=== PATIENT | female | born 1955 | race African-American/Black ===

== ENCOUNTER 2017-11-05 02:58 | Emergency (ER) | payer SELFPAY ==
[~2017-11-05] VITALS: Ht 165.1 cm; Wt 54.5 kg
[2017-11-05 03:36] LABS: BASOPHILS % 1.2 % (0.0-2.0); EOSINOPHILS % 2.9 % (0.0-5.0); HEMATOCRIT. 37.3 % (36.0-48.0); HEMOGLOBIN. 12.7 g/dL (12.0-16.0); LYMPHOCYTES % 57.4 % (20.0-50.0); MEAN CORPUSCULAR HEMOGLOBIN 33.7 pg (28.0-32.0); MEAN CORPUSCULAR VOLUME 98.9 fL (81.0-99.0); MEAN PLATELET VOLUME 9.3 fl (7.4-10.4); MONOCYTES % 10.2 % (2.0-8.0); NEUTROPHILS % 28.3 % (40.0-76.0); PLATELET 164 x1000/uL (130-400); RED BLOOD CELL COUNT 3.78 mill/uL (4.2-5.4)
[2017-11-05 03:42] LABS: CHLORIDE 107 mEq/L (98-107)
[2017-11-05 03:45] LABS: PROTHROMBIN TIME 10.8 sec (9.4-11.6)
[2017-11-05] MEDS ORDERED: ONDANSETRON HCL 4MG/2ML VIAL IV ONE (04:15)
[2017-11-05] MEDS ORDERED: MECLIZINE 25MG TABLET PO SCH (04:59)
[2017-11-05] MEDS ORDERED: SODIUM CHLORIDE 0.9% 1,000 ML IV ONE (08:15)
[2017-11-05 09:45] VITALS: BP 121/70
== END 2017-11-05 10:05 | disposition home or self-care (01) ==
LOC: ER 03:07 → CANBEDREQ 12:44
DX: E86.0 Dehydration (principal); R42 Dizziness and giddiness; J44.9 Chronic obstructive pulmonary disease, unspecified; R00.1 Bradycardia, unspecified; Z88.0 Allergy status to penicillin; F17.200 Nicotine dependence, unspecified, uncomplicated
CPT/HCPCS: 36415; 70450; 71045; 80053; 83880; 84443; 84484; 85025; 85610; 85730; 93005; 96361; 96374; 99285; J2405; J7030; J8597